=== PATIENT | female | born 1965 | race Asian ===

== ENCOUNTER 2018-09-23 09:24 | Emergency (ER) | payer OTHER ==
[~2018-09-23] VITALS: Ht 165.1 cm; Wt 56.2 kg
[2018-09-23 09:31] VITALS: BP_SYST 120
[2018-09-23 11:04] VITALS: BP_SYST 120
== END 2018-09-23 11:04 | disposition home or self-care (01) ==
LOC: SED 09:24
DX: S33.5XXA Sprain of ligaments of lumbar spine, initial encounter (principal); S13.4XXA Sprain of ligaments of cervical spine, initial encounter; S20.219A Contusion of unspecified front wall of thorax, initial encounter; V47.5XXA Car driver injured in collision with fixed or stationary object in traffic accident, initial encounter; Y93.89 Activity, other specified; Y92.410 Unspecified street and highway as the place of occurrence of the external cause; Y99.8 Other external cause status
CPT/HCPCS: 71045; 72040-TC; 72100-TC; 81025; 99283